=== PATIENT | male | born 1985 | race Two or more races ===

== ENCOUNTER 2024-02-15 23:14 | Emergency (ER) | payer OTHER ==
[~2024-02-15] VITALS: Ht 188 cm; Wt 113.4 kg
[2024-02-16] MEDS ORDERED: KETOROLAC TROMETHAMINE 60 MG VIAL IM STA (02:11)
[2024-02-16] MEDS ORDERED: TETANUS & DIPHTHERIA TOX,ADULT 0.5 ML VIAL IM STA (02:11)
[2024-02-16] MEDS ORDERED: SILVADENE20 GM TOP (02:50)
[2024-02-16] MEDS ORDERED: AMOX-CLAV 875-1 EACH PO (02:50)
[2024-02-16] MEDS ORDERED: KETO10TA2 PO (02:50)
== END 2024-02-16 03:37 ==
LOC: ER 23:15
DX: S40.011A Contusion of right shoulder, initial encounter (principal); S20.219A Contusion of unspecified front wall of thorax, initial encounter; S60.212A Contusion of left wrist, initial encounter; S90.02XA Contusion of left ankle, initial encounter; V29.99XA Rider (driver) (passenger) of other motorcycle injured in unspecified traffic accident, initial encounter; Y93.89 Activity, other specified; Y92.413 State road as the place of occurrence of the external cause; Y99.9 Unspecified external cause status